=== PATIENT | female | born 1980 | race Two or more races ===

== ENCOUNTER 2018-05-05 16:25 | Emergency (ER) | payer MEDICAID ==
[~2018-05-05] VITALS: Ht 160 cm; Wt 77.6 kg
[2018-05-05 16:50] VITALS: BP 117/71
== END 2018-05-05 20:30 | disposition left against medical advice (07) ==
LOC: ER 16:25
DX: R51 Headache (principal); R00.2 Palpitations; Z53.21 Procedure and treatment not carried out due to patient leaving prior to being seen by health care provider
CPT/HCPCS: 93005

== ENCOUNTER 2022-11-18 00:17 | Emergency (ER) | payer MEDICAID, OTHER ==
[~2022-11-18] VITALS: Ht 160 cm; Wt 80.4 kg
[2022-11-18] MEDS ORDERED: HYDROcodone-ACET 5/325MG TAB PO ONE (04:30)
[2022-11-18] MEDS ORDERED: DexAMETHasone SOD PHOS 10MG/1ML VIAL INJ IM ONE (04:45)
[2022-11-18] MEDS ORDERED: LIDOCAINE 1% HCL (LOCAL ANESTH.) INJ 20ML MDV ID ONE (04:45)
[2022-11-18] MEDS ORDERED: HYDR-4902 PO (06:47)
[2022-11-18 07:30] VITALS: BP 114/67
== END 2022-11-18 07:30 | disposition home or self-care (01) ==
LOC: ER 00:17 → EDBD 00:17 → EDUNIT# 00:17 → ER 07:30
DX: S02.2XXA Fracture of nasal bones, initial encounter for closed fracture (principal); S93.104A Unspecified dislocation of right toe(s), initial encounter; S02.92XA Unspecified fracture of facial bones, initial encounter for closed fracture; S93.101A Unspecified subluxation of right toe(s), initial encounter; R22.0 Localized swelling, mass and lump, head; Y04.2XXA Assault by strike against or bumped into by another person, initial encounter; Y93.89 Activity, other specified; Y92.89 Other specified places as the place of occurrence of the external cause; Y99.8 Other external cause status
CPT/HCPCS: 28660; 70486; 73620; 96372; 99285; J1100; J2001